=== PATIENT | female | born 1975 | race Caucasian/White ===

== ENCOUNTER 2019-11-18 19:03 | Outpatient (CLI) | payer OTHER ==
--- NOTE | 2019-11-18 19:20 | RAD ---
LEFT FOOT RADIOGRAPHS THREE VIEWS: 11/18/19 PROVIDED CLINICAL HISTORY: Left foot pain without injury. FINDINGS: No evidence for fracture or other acute osseous abnormality. Alignment appears anatomic. Joint spaces appear preserved. IMPRESSION: No evidence for an acute osseous abnormality or significant arthropathy. POS: [email or web address]
== END 2019-11-18 19:04 | disposition home or self-care (01) ==
LOC: SCSRAD 19:03
PROVIDERS: ATTEND Family Medicine
DX: M79.672 Pain in left foot (principal)